=== PATIENT | male | born 1945 | race Caucasian/White ===

== ENCOUNTER 2018-01-26 09:38 | Day surgery (SDC) | payer MEDICARE, OTHER ==
[~2018-01-26 09:38] MED LIST: PROPOFOL INJ 200 MG/20 ML VIAL IV ONE
[2018-01-26 11:31] VITALS: BP 118/66
--- NOTE | 2018-01-26 12:35 | Operative Report ---
Operative Report DATE OF SURGERY: 01/26/18 Operative Report: The risks, benefits and alternatives of the procedure and the risk of bleeding, perforation requiring surgery are explained to the patient in detail and informed consent is obtained. The patient is placed in the left, lateral decubital position. Timeout was called. Propofol medication is administered. A rectal examination is done which did not reveal any masses, tears or fissures. An Olympus videoscope was introduced into the patient's rectum. The scope was then carefully advanced all the way to the cecum. The cecum was identified by the usual anatomical landmarks of the ileocecal valve as well as the appendiceal office. Photodocumentation is obtained. The scope was then sequentially pulled back via the various segments of the colon including the ascending colon, hepatic flexure, transverse colon, splenic flexure, descending colon and finally into the rectosigmoid portions of the colon. Retroflexion maneuver is performed. The risks benefits and alternatives of the procedure explained to the patient in detail and informed consent is obtained.A GIF Olympus video scope was inserted into the patient's mouth and hypopharynx, the esophagus is identified intubated and insufflated, the scope was then advanced through the esophagus stomach and duodenum, retroflexion maneuver is done the esophagus stomach and first and second portions of the duodenum examined PREOPERATIVE DIAGNOSIS: Colorectal cancer screening. Dysphagia POSTOPERATIVE DIAGNOSIS: 3 polyps noted is removed via snare polypectomy and retrieved. This is located in the hepatic flexure area. Diverticulosis. Internal hemorrhoids. Gastritis status post biopsy. Schatzki's ring that is broken in situ OPERATION: Colonoscopy with snare polypectomy. EGD with biopsy SURGEON: ABBI STAHL ANESTHESIA: LMAC TISSUE REMOVED OR ALTERED: As noted above. COMPLICATIONS: None. ESTIMATED BLOOD LOSS: None. INTRAOPERATIVE FINDINGS: As noted above. PROCEDURE: Patient tolerated the procedure well. No immediate postprocedure complications are noted. Patient discharged in good condition. Discharge date 01/26/2018. Discharge diet: Regular. Discharge activity: Regular. 2-3-week follow-up to discuss findings. 3-year surveillance colonoscopy. I will wait on the pathology. Patient is instructed to call the office or proceed to the emergency room should there be any further problems or questions.
--- NOTE | 2018-01-26 13:24 | EKG REPORT ---
SEVERITY:- ABNORMAL ECG - SINUS RHYTHM INCOMPLETE RIGHT BUNDLE BRANCH BLOCK INFERIOR INFARCT, OLD : Confirmed by: Jose Maria Patel MD 26-Jan-2018 13:23:19
== END 2018-01-26 11:00 | disposition home or self-care (01) ==
LOC: END 09:38
PROVIDERS: ATTEND Internal Medicine Gastroenterology
DX: Z12.11 Encounter for screening for malignant neoplasm of colon (principal); D12.4 Benign neoplasm of descending colon; K57.30 Diverticulosis of large intestine without perforation or abscess without bleeding; K64.8 Other hemorrhoids; Z86.010 Personal history of colon polyps; K22.2 Esophageal obstruction; K29.50 Unspecified chronic gastritis without bleeding; I10 Essential (primary) hypertension; M19.90 Unspecified osteoarthritis, unspecified site; R73.03 Prediabetes; R01.1 Cardiac murmur, unspecified; E78.5 Hyperlipidemia, unspecified; I25.10 Atherosclerotic heart disease of native coronary artery without angina pectoris; J45.20 Mild intermittent asthma, uncomplicated; Z86.73 Personal history of transient ischemic attack (TIA), and cerebral infarction without residual deficits
CPT/HCPCS: 43239; 45385; 88305 ×2; 93005; 93010; J2704; 813

== ENCOUNTER 2018-12-29 11:54 | Emergency (ER) | payer MEDICARE ==
--- NOTE | 2018-12-29 12:15 | EKG REPORT ---
SEVERITY:- ABNORMAL ECG - SINUS BRADYCARDIA FIRST DEGREE AV BLOCK IVCD, CONSIDER ATYPICAL RBBB BORDERLINE INFERIOR Q WAVES BORDERLINE ST DEPRESSION, LATERAL LEADS : Confirmed by: Jose Maria Patel MD 29-Dec-2018 12:14:30
[2018-12-29] MEDS ORDERED: NITROGLYCERIN 2% OINTMENT 1 GM PACKET TP ONE (12:20)
--- NOTE | 2018-12-29 12:27 | ER Document Report ---
ED Cardiac - General Chief Complaint: Syncope Stated Complaint: POSSIBLE SYNCOPE Information source: Patient Notes: Patient claims that earlier today started getting chest pain and almost passed out. She apparently was seen in his doctor's office given nitro glycerin and aspirin he apparently almost passed out afterwards when his heart had bradycardia down into the 40s. Names that he does not very minimal chest pain at this time and feels almost back to normal TRAVEL OUTSIDE OF THE [place] IN LAST 30 DAYS: No - HPI Patient complains to provider of: Chest pain. denies: Chest tightness, Palpitations, Shortness of breath, Other Use of: denies: Alcohol, Amphetamines, Bath salts, Caffeine, Cocaine, Decongestants, Other Was the onset of pain: Sudden Chest pain location: Substernal Quality of pain: denies: None, Constant, Intermittent, Mild, Moderate, Severe, Achy, Burning, Constriction, Cramping, Crushing, Dull, Heaviness, Incisional, Indigestion, Numbness, Pressure, Radiating, Sharp, Stabbing, Tearing, Throbbing, Tightness, Tingling, Other Chest pain radiation location: denies: Left jaw, Left arm, Left shoulder, Right jaw, Right arm, Right shoulder, Back, Neck, None Severity now: Mild Severity at worst: Moderate Pain level currently: 1 Chest pain precipitating factors: At Rest Cardiac risk factors: Hypertension, + Family history, Dyslipidemia Positive cardiac history: Yes Associated symptoms: Syncope. denies: None, Abdominal pain, Anxiety, Back pain, Cool extremities, Diaphoresis, Dizziness, Edema, Fatigue, Fever/chills, Headache, Heartburn, Hypotension, Jaw pain, Lightheaded, Nausea/vomiting, Neck pain, Palpitations, Rash, Shortness of breath, Swelling/lump in chest, Weakness, Other Exacerbated by: Denies Relieved by: Nothing Similar symptoms previously: Yes Recently seen / treated by doctor: Yes - Related Data Allergies/Adverse Reactions: No Known Allergies Allergy (Verified 12/29/18 12:12) Past Medical History - Social History Smoking Status: Former Smoker Chew tobacco use (# tins/day): No Frequency of alcohol use: Moderate Drug Abuse: None Patient has suicidal ideation: No Patient has homicidal ideation: No - Past Medical History Cardiac Medical History: Reports: Hx Coronary Artery Disease, Hx Hypertension Denies: Hx Heart Attack Pulmonary Medical History: Reports: Hx Asthma - MILD INTERMITTENT Denies: Hx Bronchitis, Hx COPD, Hx Pneumonia Neurological Medical History: Denies: Hx Cerebrovascular Accident, Hx Seizures Musculoskeletal Medical History: Reports Hx Arthritis - HANDS - Immunizations Hx Diphtheria, Pertussis, Tetanus Vaccination: No Review of Systems - Review of Systems Constitutional: denies: No symptoms reported, See HPI, Chills, Diaphoresis, Fever, Malaise, Weakness, Other, Weight gain, Weight loss, Recent illness EENT: denies: No symptoms reported, See HPI, Eye pain, Eye discharge, Blurred vision, Tearing, Double vision, Ear pain, Ear discharge, Nose pain, Nose congestion, Nose discharge, Sinus pressure, Sinus discharge, Throat pain, Difficulty swallowing, Throat swelling, Mouth pain, Mouth swelling, Dental problem, Vertigo, Other Cardiovascular: Chest pain. denies: No symptoms reported, See HPI, Palpitations, Heart racing, Orthopnea, Dyspnea, Syncope, Dizziness, Lightheaded, Edema, Other, Paroxysmal Nocturnal Dysp Respiratory: Short of breath. denies: No symptoms reported, See HPI, Cough, Hurts to breathe, Hemoptysis, Sputum, Stridor, Wheezing, Other Gastrointestinal: denies: No symptoms reported, See HPI, Abdomen distended, Abdominal pain, Diarrhea, Nausea, Vomiting, Constipation, Blood streaked bowels, Poor appetite, Poor fluid intake, Blood in vomit, Black stools, Rectal bleeding, Last bowel movement, Fecal incontinence, Other Neurological/Psychological: denies: No symptoms reported, See HPI, Confusion, Dementia, Depression, Hallucinations, Anxiety, Homicidal ideation, Sensory change, Weakness, Gait changes, Loss of power, Paralysis, Seizure, Lost consciousness, Headaches, Speech impairment, Numbness, Suicidal ideation, Tingling, Tremor, Other -: Yes All other systems reviewed and negative Physical Exam - Vital signs Notes: PHYSICAL EXAMINATION: GENERAL: Well-appearing, well-nourished and in no acute distress. HEAD: Atraumatic, normocephalic. EYES: Pupils equal round and reactive to light, extraocular movements intact, sclera anicteric, conjunctiva are normal. ENT: nares patent, oropharynx clear without exudates. Moist mucous membranes. NECK: Normal range of motion, supple without lymphadenopathy LUNGS: Breath sounds clear to auscultation bilaterally and equal. No wheezes rales or rhonchi. HEART: Regular rate and rhythm without murmurs ABDOMEN: Soft, nontender, normoactive bowel sounds. No guarding, no rebound. No masses appreciated. EXTREMITIES: Normal range of motion, no pitting or edema. No cyanosis. NEUROLOGICAL: No focal neurological deficits. Moves all extremities spontaneously and on command. PSYCH: Normal mood, normal affect. SKIN: Warm, Dry, normal turgor, no rashes or lesions noted. Course - EKG Interpretation by Me EKG shows normal: Sinus rhythm Rate: Normal Rhythm: NSR Heart block present: 1st Degree Additional EKG results interpreted by me: 12/29/18 12:26 There are flipped T's in leads I and aVL ST elevation no ectopy is noted no previous to compare at this time. We are attempting to get an old one from his doctor's office.
[2018-12-29 12:39] LABS: ABSOLUTE EOSINOPHILS # (AUTO) 0.3 10^3/uL (0.0-0.6); ABSOLUTE LYMPHOCYTES (AUTO) 1.6 10^3/uL (0.5-4.7); ABSOLUTE MONOCYTES (AUTO) 0.7 10^3/uL (0.1-1.4); ABSOLUTE NEUT (AUTO) 4.9 10^3/uL (1.7-8.2); BASOPHILS % (AUTO) 0.3 % (0-2); EOSINOPHILS % (AUTO) 4.3 % (0-6); HEMATOCRIT 42.2 % (37.9-51.0); HEMOGLOBIN 14.3 g/dL (13.5-17.0); LYMPHOCYTES % (AUTO) 21.1 % (13-45); MEAN CORPUSCULAR HEMOGLOBIN 31.4 pg (27.0-33.4); MEAN CORPUSCULAR HGB CONC 33.8 g/dL (32.0-36.0); MEAN CORPUSCULAR VOLUME 93 fl (80-97); MONOCYTES % (AUTO) 9.3 % (3-13); PLATELET COUNT 178 10^3/uL (150-450); RED BLOOD COUNT 4.55 10^6/uL (4.35-5.55); RED CELL DISTRIBUTION WIDTH 13.5 % (11.5-14.0); TOTAL CELLS COUNTED % (AUTO) 100 %; WHITE BLOOD COUNT 7.5 10^3/uL (4.0-10.5)
[2018-12-29 12:54] LABS: INTERNATIONAL RATION (INR) 1.03; PROTHROMBIN TIME 13.5 SEC (11.4-15.4)
--- NOTE | 2018-12-29 12:57 | RADIOLOGY REPORT (SQ) ---
EXAM DESCRIPTION: CHEST SINGLE VIEW COMPLETED DATE/TIME: 12/29/2018 12:44 pm REASON FOR STUDY: chest pain COMPARISON: None. EXAM PARAMETERS: NUMBER OF VIEWS: One view. TECHNIQUE: Single frontal radiographic view of the chest acquired. RADIATION DOSE: NA LIMITATIONS: None. FINDINGS: LUNGS AND PLEURA: No opacities, masses or pneumothorax. No pleural effusion. MEDIASTINUM AND HILAR STRUCTURES: No masses. Contour normal. HEART AND VASCULAR STRUCTURES: Enlarged cardiac silhouette. Aortic atherosclerosis. No evidence of failure. BONES: No acute findings. HARDWARE: Sternotomy hardware. OTHER: No other significant finding. IMPRESSION: No evidence of acute intrathoracic process. TECHNICAL DOCUMENTATION: JOB ID: [id number] [employer]- All Rights Reserved Reading location - IP/workstation name: [email or web address]
[2018-12-29 13:00] LABS: ALKALINE PHOSPHATASE 88 U/L (38-126); ANION GAP 7 (5-19); ASPARTATE AMINO TRANSFERASE 20 U/L (17-59); BILIRUBIN,DIRECT 0.1 mg/dL (0.0-0.4); BLOOD UREA NITROGEN 18 mg/dL (7-20); CALCIUM 9.3 mg/dL (8.4-10.2); CARBON DIOXIDE 27 mmol/L (22-30); CHLORIDE 105 mmol/L (98-107); GLUCOSE 129 mg/dL (75-110); POTASSIUM 4.2 mmol/L (3.6-5.0); TOTAL PROTEIN 6.9 g/dL (6.3-8.2)
--- NOTE | 2018-12-29 13:58 | ER Document Report ---
ED Syncope and Near Syncope <JONA OSBORNE P - Last Filed: 12/29/18 21:12> - General Information source: Patient, Relative TRAVEL OUTSIDE OF THE [place] IN LAST 30 DAYS: No - HPI Patient complains to provider of: Fainting. No: Nearly fainting, Other Episode witnessed (by whom): Yes - Single episoded occurred: yes Symptoms prior to episode: Chest pain, Dizziness. No: None, Abdominal pain, Back pain, Chills, Diarrhea, Fever, Headache, Hyperventilation, Lightheaded, Nausea/vomiting, Palpitations, Racing heart, Short of breath, Sweaty, Visual disturbance, Other Position/Activity at time of episode: Standing Quality of pain: denies: No pain, Achy, Burning, Cramping, Dull, Fullness, Pressure, Sharp, Stabbing, Throbbing, Other Severity: Mild Pain Level: 1 Context: Became unresponsive. denies: Almost passed out, Breathing shallow/stopped, Collapsed, Confused after event, [place] faint, Incontinent of stool, Incontinent of urine, Lost consciousness, Lost pulse, Low blood sugar, , Recent immobilization, Recent seizures, Recent travel, Seizure activity observed, Other Injury location: No: None, Abdomen, Back, Chest, Face, Head, Mouth, Neck, Tongue, LUE, LLE, RUE, RLE Current symptoms: None/feels back to normal Recently seen / treated by doctor: Yes <PATRIA VELASCO J - Last Filed: 12/30/18 06:16> - General Chief Complaint: Syncope Stated Complaint: POSSIBLE SYNCOPE Primary Care Provider: MEGAN TAM MD [Primary Care Provider] - Follow up as needed JESUS DUNBAR MD [ACTIVE STAFF] - Follow up as needed - Related Data Allergies/Adverse Reactions: No Known Allergies Allergy (Verified 12/29/18 12:12) Past Medical History - Social History Smoking Status: Former Smoker Chew tobacco use (# tins/day): No Frequency of alcohol use: Moderate Drug Abuse: None Family History: None Patient has suicidal ideation: No Patient has homicidal ideation: No - Past Medical History Cardiac Medical History: Reports: Hx Coronary Artery Disease, Hx Hypertension Denies: Hx Heart Attack Pulmonary Medical History: Reports: Hx Asthma - MILD INTERMITTENT Denies: Hx Bronchitis, Hx COPD, Hx Pneumonia Neurological Medical History: Denies: Hx Cerebrovascular Accident, Hx Seizures Musculoskeletal Medical History: Reports Hx Arthritis - HANDS Past Surgical History: Reports: Hx Cardiac Catheterization - Immunizations Hx Diphtheria, Pertussis, Tetanus Vaccination: No <PATRIA VELASCO - Last Filed: 12/30/18 06:16> Review of Systems - Review of Systems Constitutional: denies: No symptoms reported, See HPI, Chills, Diaphoresis, Fever, Malaise, Weakness, Other, Weight gain, Weight loss, Recent illness EENT: denies: No symptoms reported, See HPI, Eye pain, Eye discharge, Blurred vision, Tearing, Double vision, Ear pain, Ear discharge, Nose pain, Nose congestion, Nose discharge, Sinus pressure, Sinus discharge, Throat pain, Difficulty swallowing, Throat swelling, Mouth pain, Mouth swelling, Dental problem, Vertigo, Other Cardiovascular: Chest pain, Syncope. denies: No symptoms reported, See HPI, Palpitations, Heart racing, Orthopnea, Dyspnea, Dizziness, Lightheaded, Edema, Other, Paroxysmal Nocturnal Dysp Respiratory: denies: No symptoms reported, See HPI, Cough, Hurts to breathe, Hemoptysis, Short of breath, Sputum, Stridor, Wheezing, Other Gastrointestinal: denies: No symptoms reported, See HPI, Abdomen distended, Abdominal pain, Diarrhea, Nausea, Vomiting, Constipation, Blood streaked bowels, Poor appetite, Poor fluid intake, Blood in vomit, Black stools, Rectal bleeding, Last bowel movement, Fecal incontinence, Other Genitourinary: denies: No symptoms reported, See HPI, Burning, Dysuria, Discharge, Frequency, Flank pain, Hematuria, Incontinence, Pain, Urgency, Ret ention, Other Neurological/Psychological: denies: No symptoms reported, See HPI, Confusion, Dementia, Depression, Hallucinations, Anxiety, Homicidal ideation, Sensory change, Weakness, Gait changes, Loss of power, Paralysis, Seizure, Lost consciousness, Headaches, Speech impairment, Numbness, Suicidal ideation, Tingling, Tremor, Other -: Yes All other systems reviewed and negative <PATRIA VELASCO - Last Filed: 12/30/18 06:16> Physical Exam <PATRIA VELASCO - Last Filed: 12/30/18 06:16> - Vital signs Vitals: Resp 14 12/29/18 12:00 Notes: PHYSICAL EXAMINATION: GENERAL: Well-appearing, well-nourished and in no acute distress. HEAD: Atraumatic, normocephalic. EYES: Pupils equal round and reactive to light, extraocular movements intact, sclera anicteric, conjunctiva are normal. ENT: nares patent, oropharynx clear without exudates. Moist mucous membranes. NECK: Normal range of motion, supple without lymphadenopathy LUNGS: Breath sounds clear to auscultation bilaterally and equal. No wheezes rales or rhonchi. HEART: Regular rate and rhythm without murmurs ABDOMEN: Soft, nontender, normoactive bowel sounds. No guarding, no rebound. No masses appreciated. EXTREMITIES: Normal range of motion, no pitting or edema. No cyanosis. NEUROLOGICAL: No focal neurological deficits. Moves all extremities spontaneously and on command. PSYCH: Normal mood, normal affect. SKIN: Warm, Dry, normal turgor, no rashes or lesions noted. (PATRIA VELASCO) Course - Laboratory Result Diagrams: 12/29/18 12:17 12/29/18 12:17 <JONA OSBORNE - Last Filed: 12/29/18 21:12> - Laboratory Result Diagrams: 12/29/18 12:17 12/29/18 12:17 - Diagnostic Test Radiology reviewed: Image reviewed, Reports reviewed - EKG Interpretation by Me EKG shows normal: Sinus rhythm Rate: Normal Rhythm: NSR Heart block present: 1st Degree When compared to previous EKG there are: No significant change - Transfer of Care Care transferred to following provider: nawaf at 4 pm to check troponin and patients progress <PATRIA VELASCO - Last Filed: 12/30/18 06:16> - Re-evaluation Re-evalutation: 12/29/18 16:48 MDM 73 year old with chest pain today at physical in doctor's office, passed out afterwards. He feels fine here and 2 troponins are negative and he is without change for EKG from [place] - Ant and inf t wave inversions were present in 17. He wants to go home. Will rec cardiology follow up. I received this patient in turnover from Dr. Velasco at the end of his shift and he initiated the work up. (JONA OSBORNE) - Vital Signs Vital signs: Temp Pulse Resp BP Pulse Ox 16 109/48 L 95 12/29/18 17:17 12/29/18 17:17 12/29/18 17:17 - Laboratory Laboratory results interpreted by me: 12/29/18 12:17 Glucose 129 H - EKG Interpretation by Me Additional EKG results interpreted by me: 12/29/18 13:57 Please note EKG was obtained from his previous doctor in [place] from 10/21/2017 which shows flipped T's in leads I and aVL with approximately 1 mm de pression similar to the day the EKG is unchanged from that time (PATRIA VELASCO) - Transfer of Care Notes: 12/29/18 15:18 Note a repeat troponin will be done at 315 it is negative and patient has no chest pain with exertion or dizziness we will let him go home. All of his regular doctor for possible Holter monitor/stress test/echocardiogram he should return if he passes out again chest pain shortness of breath or condition worsens (PATRIA VELASCO) Discharge <JONA OSBORNE - Last Filed: 12/29/18 21:12> <PATRIA VELASCO - Last Filed: 12/30/18 06:16> - Discharge Clinical Impression: Vasovagal syncope Condition: Stable Disposition: HOME, SELF-CARE Instructions: Syncopal Episode ([facility]), Vasovagal Symptoms ([facility]) Additional Instructions: Increased fluid in your diet such as Gatorade mixed with water if you have black or bloody stools and diarrhea you pass out again chest pain shortness of breath or increased dizziness. Call Dr. Nicole (cardiology) in follow up. Referrals: MEGAN TAM MD [Primary Care Provider] - Follow up as needed JESUS DUNBAR MD [ACTIVE STAFF] - Follow up as needed
[2018-12-29 17:25] VITALS: BP 109/48
== END 2018-12-29 17:25 | disposition home or self-care (01) ==
LOC: ER 11:54
DX: R55 Syncope and collapse (principal); R07.9 Chest pain, unspecified; R42 Dizziness and giddiness; I44.0 Atrioventricular block, first degree; I25.10 Atherosclerotic heart disease of native coronary artery without angina pectoris; I10 Essential (primary) hypertension; J45.20 Mild intermittent asthma, uncomplicated; Z87.891 Personal history of nicotine dependence
CPT/HCPCS: 93005; 36415; 83690; 85025; 85610; 80053; 84484; 71045; 93010; A9270; 99284

== ENCOUNTER 2019-01-15 09:54 | Emergency (ER) | payer MEDICARE ==
[2019-01-15] MEDS ORDERED: ASPIRIN 81 MG TABLET, CHEWABLE PO ONE (10:36)
--- NOTE | 2019-01-15 10:36 | ER Document Report ---
ED Medical Screen (RME) - General Chief Complaint: Palpitations Stated Complaint: HEART PALPITATIONS Time Seen by Provider: 01/15/19 10:30 Primary Care Provider: MEGAN TAM MD [Primary Care Provider] - Follow up as needed Mode of Arrival: Wheelchair Information source: Patient Notes: 73-year-old male presented to ED after an episode of near syncope while driving about 930. He states his vision on the left side got very blurry with some spots then he got very weak so he pulled over let his drive when she got to the emergency room he was very weak and was not able to walk by himself he has tingling in his bilateral fingers and toes. He states he does have a stress test scheduled for Friday,20 January. 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 Patient is alert oriented respirations regular nonlabored answering questions appropriately. I have greeted and performed a rapid initial assessment of this patient. A comprehensive ED assessment and evaluation of the patient, analysis of test results and completion of medical decision making process will be conducted by an additional ED providers. TRAVEL OUTSIDE OF THE [place] IN LAST 30 DAYS: No - Related Data Allergies/Adverse Reactions: No Known Allergies Allergy (Verified 12/29/18 12:12) Past Medical History - Past Medical History Cardiac Medical History: Reports: Hx Coronary Artery Disease, Hx Hypertension Denies: Hx Heart Attack Pulmonary Medical History: Reports: Hx Asthma - MILD INTERMITTENT Denies: Hx Bronchitis, Hx COPD, Hx Pneumonia Neurological Medical History: Denies: Hx Cerebrovascular Accident, Hx Seizures Musculoskeltal Medical History: Reports Hx Arthritis - HANDS Past Surgical History: Reports: Hx Cardiac Catheterization - Immunizations Hx Diphtheria, Pertussis, Tetanus Vaccination: No Physical Exam - Vital signs Vitals: Temp Pulse Resp BP Pulse Ox 97.4 F 69 22 H 157/74 H 99 01/15/19 10:15 01/15/19 10:15 01/15/19 10:15 01/15/19 10:15 01/15/19 10:15 Course - Vital Signs Vital signs: Temp Pulse Resp BP Pulse Ox 97.4 F 69 22 H 157/74 H 99 01/15/19 10:15 01/15/19 10:15 01/15/19 10:15 01/15/19 10:15 01/15/19 10:15 Doctor's Discharge - Discharge Referrals: MEGAN TAM MD [Primary Care Provider] - Follow up as needed
[2019-01-15 11:05] LABS: ABSOLUTE EOSINOPHILS # (AUTO) 0.3 10^3/uL (0.0-0.6); ABSOLUTE LYMPHOCYTES (AUTO) 1.8 10^3/uL (0.5-4.7); ABSOLUTE MONOCYTES (AUTO) 0.6 10^3/uL (0.1-1.4); BASOPHILS % (AUTO) 0.4 % (0-2); EOSINOPHILS % (AUTO) 5.6 % (0-6); HEMATOCRIT 44.6 % (37.9-51.0); HEMOGLOBIN 15.2 g/dL (13.5-17.0); LYMPHOCYTES % (AUTO) 31.8 % (13-45); MEAN CORPUSCULAR HEMOGLOBIN 31.5 pg (27.0-33.4); MEAN CORPUSCULAR VOLUME 93 fl (80-97); MONOCYTES % (AUTO) 9.7 % (3-13); PLATELET COUNT 223 10^3/uL (150-450); RED BLOOD COUNT 4.81 10^6/uL (4.35-5.55); RED CELL DISTRIBUTION WIDTH 13.5 % (11.5-14.0); SEGMENTED NEUTROPHILS % (AUTO) 52.5 % (42-78); TOTAL CELLS COUNTED % (AUTO) 100 %; WHITE BLOOD COUNT 5.7 10^3/uL (4.0-10.5)
--- NOTE | 2019-01-15 11:16 | RADIOLOGY REPORT (SQ) ---
EXAM DESCRIPTION: CHEST 2 VIEWS COMPLETED DATE/TIME: 01/15/2019 11:01 am REASON FOR STUDY: chest pain COMPARISON: 12/29/2018 EXAM PARAMETERS: NUMBER OF VIEWS: two views TECHNIQUE: Digital Frontal and Lateral radiographic views of the chest acquired. RADIATION DOSE: NA LIMITATIONS: none FINDINGS: LUNGS AND PLEURA: No opacities, masses or pneumothorax. No pleural effusion. Emphysematou s change with flattening of the hemidiaphragm and increased AP diameter. MEDIASTINUM AND HILAR STRUCTURES: No masses or contour abnormalities. HEART AND VASCULAR STRUCTURES: Normal heart size. Aortic atherosclerosis per BONES: Sternotomy changes. No acute findings. HARDWARE: Sternotomy hardware. OTHER: No other significant finding. IMPRESSION: Emphysematous change without evidence of acute cardiopulmonary process. TECHNICAL DOCUMENTATION: JOB ID: [id number] [employer]- All Rights Reserved Reading location - IP/workstation name: [email or web address]
[2019-01-15 11:37] LABS: ALBUMIN 4.5 g/dL (3.5-5.0); ALKALINE PHOSPHATASE 90 U/L (38-126); ANION GAP 11 (5-19); ASPARTATE AMINO TRANSFERASE 24 U/L (17-59); BILIRUBIN,DIRECT 0.1 mg/dL (0.0-0.4); BILIRUBIN,TOTAL 1.1 mg/dL (0.2-1.3); BLOOD UREA NITROGEN 20 mg/dL (7-20); CALCIUM 9.9 mg/dL (8.4-10.2); CARBON DIOXIDE 28 mmol/L (22-30); CHLORIDE 102 mmol/L (98-107); GLUCOSE 139 mg/dL (75-110); POTASSIUM 4.2 mmol/L (3.6-5.0); TOTAL PROTEIN 7.6 g/dL (6.3-8.2)
--- NOTE | 2019-01-15 13:07 | EKG REPORT ---
SEVERITY:- ABNORMAL ECG - SINUS RHYTHM NONSPECIFIC INTRAVENTRICULAR CONDUCTION DELAY PROBABLE INFERIOR INFARCT, OLD PROBABLE POSTERIOR INFARCT : Confirmed by: Marcela Cardenas MD 15-Jan-2019 13:07:07
[2019-01-15] MEDS ORDERED: LORAZEPAM 0.5 MG TABLET PO ONE (16:46)
--- NOTE | 2019-01-15 16:51 | ER Document Report ---
ED General - General Chief Complaint: Near Syncope Stated Complaint: HEART PALPITATIONS Time Seen by Provider: 01/15/19 10:30 Primary Care Provider: MEGAN TAM MD [Primary Care Provider] - Follow up as needed Mode of Arrival: Wheelchair TRAVEL OUTSIDE OF THE [place] IN LAST 30 DAYS: No - HPI Notes: Patient is a 73-year-old male with a history of coronary artery disease status post bypass, hypertension, cataract surgery left eye who presents complaining of having some spotty vision when he was driving to his left eye around 930 this morning. Patient states that he started feeling generally weak with a mild left temporal headache thereafter. He did switch places with his at that time. states that she did not notice any slurring of speech or drooping of his face. Patient states that this lasted for a few minutes and then went away. Patient states that he has not had any recurrence of any of his symptoms since that time. He has been able to eat and drink without difficulty. He is urinating normally and having normal bowel movements. Denies drug allergies. He has not had any palpitations today, but does have h/o palpitations that is being monitored by his windows migration technician. Denies any fever, head injury, neck pain, changes in speech/mentation/hearing, URI, sore throat, chest pain, palpitations, syncope, cough, shortness of breath, wheeze, dyspnea, abdominal pain, nausea/vomiting/diarrhea, urinary retention, dysuria, hematuria, loss of control of bowel or bladder, numbness/tingling, saddle anesthesia, muscle paralysis, or rash. - Related Data Allergies/Adverse Reactions: No Known Allergies Allergy (Verified 12/29/18 12:12) Past Medical History - General Information source: Patient - Social History Smoking Status: Never Smoker Family History: None Patient has suicidal ideation: No Patient has homicidal ideation: No - Past Medical History Cardiac Medical History: Reports: Hx Coronary Artery Disease, Hx Hypertension Denies: Hx Heart Attack Pulmonary Medical History: Reports: Hx Asthma - MILD INTERMITTENT Denies: Hx Bronchitis, Hx COPD, Hx Pneumonia Neurological Medical History: Denies: Hx Cerebrovascular Accident, Hx Seizures Musculoskeletal Medical History: Reports Hx Arthritis - HANDS Past Surgical History: Reports: Hx Cardiac Catheterization - Immunizations Hx Diphtheria, Pertussis, Tetanus Vaccination: No Review of Systems - Review of Systems -: Yes All other systems reviewed and negative Physical Exam - Vital signs Vitals: Temp Pulse Resp BP Pulse Ox 97.4 F 69 22 H 157/74 H 99 01/15/19 10:15 01/15/19 10:15 01/15/19 10:15 01/15/19 10:15 01/15/19 10:15 - Notes Notes: PHYSICAL EXAMINATION: GENERAL: Well-appearing, well-nourished and in no acute distress. A&Ox4. Answers questions appropriately. HEAD: Atraumatic, normocephalic. Non-tender. EYES: Pupils equal round and reactive to light, extraocular movements intact, sclera anicteric, conjunctiva are normal. No nystagmus. ENT: EAC clear b/l. TM's intact b/l without erythema, fluid, or perforation. Nares patent and without discharge. oropharynx clear without exudates. No tonsilar hypertrophy or erythema. Moist mucous membranes. No sinus tenderness. NECK: Normal range of motion, supple without lymphadenopathy. No r igidity/meningismus. No midline tenderness. LUNGS: Breath sounds clear to auscultation bilaterally and equal. No wheezes rales or rhonchi. HEART: Regular rate and rhythm without murmurs, rubs, gallops. ABDOMEN: Soft, nontender, nondistended abdomen. No guarding, no rebound. Normal bowel sounds present. No CVA tenderness bilaterally. Musculoskeletal: Ext b/l: FROM to passive/active. Strength 5+/5. No deficits noted. No bony tenderness of extremities. Extremities: No cyanosis, clubbing, or edema b/l. Peripheral pulses 2+. Capillary refill less than 2 seconds. NEUROLOGICAL: NIH 0. GCS 15. Cranial nerves grossly intact. Normal speech, normal gait. Normal sensory, motor exams. Reflexes 2+ b/l. ELIS's negative. Pronator drift negative. Heel/cano, finger/nose wnl. PSYCH: Normal mood, normal affect. SKIN: Warm, Dry, normal turgor, no rashes or lesions noted. Course - Re-evaluation Re-evalutation: 01/15/19 18:17 I did review with Dr. Snell who is in agreement with dispo/plan after review of case: Patient is an afebrile, well-hydrated, 73-year-old male who presents with nonspecific blurriness of vision, mild left temporal headache, general weakness that is since resolved. Vitals are acceptable without significant tachycardia, tachypnea, hypoxia. PE is otherwise unremarkable for any focal neurological deficits. NIH 0, GCS 15, Cranial nerves grossly intact. Pt never had any focal deficits or unilateral weakness reported/noted. Patient is nontoxic-appearing and is tolerating p.o. without difficulty. Labs and imaging including CT of the head was unremarkable. Patient's symptoms resolved a couple minutes after initial onset and have not returned. No further work-up warranted at this time. Low suspicion for any acute glaucoma, temporal arteritis, meningitis, intracranial hemorrhage, ischemic stroke, or fracture at this time. Patient is aware that his condition can change from initial presentation and that he needs to monitor symptoms closely for any acute changes. Reviewed that even though we have lower suspicion, we cannot adequately r/o possible TIA/Temporal arteritis etc. Strict return precautions were reviewed thoroughly. Dr. Snell does not believe his presentation/history to mimic TIA very well and we discussed monitoring very closely and return precautions. Patient is to recheck with his PCM on Friday. Schedule appointment with ophthalmology as well. Return to the ED with any other worsening/concerning symptoms. Patient is in agreement. - Vital Signs Vital signs: Temp Pulse Resp BP Pulse Ox 97.4 F 73 22 H 157/74 H 99 01/15/19 10:31 01/15/19 10:31 01/15/19 10:31 01/15/19 10:31 01/15/19 10:31 - Laboratory Result Diagrams: 01/15/19 10:50 01/15/19 10:50 Laboratory results interpreted by me: 01/15/19 10:50 Glucose 139 H Discharge - Discharge Clinical Impression: Vision changes, Left temporal headache, General weakness Condition: Stable Disposition: HOME, SELF-CARE Additional Instructions: Rest, Ice/cool compress Tylenol/ibuprofen as needed Light stretches daily Take medications as directed F/u with your PCP in 2-3 days for a recheck Schedule an appointment with ophthalmology Consider consult(s) with Neurology for ongoing/worsening symptoms Return to the ED with any worsening symptoms and/or development of fever, headache, changes in behavior/mentation/vision/speech, chest pain, palpitations, syncope, shortness of breath, trouble breathing, abdominal pain, n/v/d, blood in stool/urine, loss of control of bowel/bladder, urinary retention, muscle weakness/paralysis, saddle anesthesia, numbness/tingling, or other worsening symptoms that are concerning to you. Prescriptions: Hydroxyzine Pamoate [Vistaril 25 mg Capsule] 25 mg PO BID #12 capsule Forms: Elevated Blood Pressure Referrals: MEGAN TAM MD [Primary Care Provider] - Follow up as needed MILES ORANTES MD [ACTIVE STAFF] - Follow up in 3-5 days
--- NOTE | 2019-01-15 18:03 | RADIOLOGY REPORT (SQ) ---
EXAM DESCRIPTION: CT HEAD WITHOUT COMPLETED DATE/TIME: 01/15/2019 5:47 pm REASON FOR STUDY: visual change left eye, headache COMPARISON: None. TECHNIQUE: Axial images acquired through the brain without intravenous contrast. Images reviewed wi th bone, brain and subdural windows. Additional sagittal and coronal reconstructions were generated. Images stored on PACS. All CT scanners at this facility use dose modulation, iterative reconstruction, and/or weight based d osing when appropriate to reduce radiation dose to as low as reasonably achievable (ALARA). [facility]: Dose Right [facility]: CareDose [facility]: Dose Right [facility]: Teradose 4D [facility]: Smart CINEPASS RADIATION DOSE: CT Rad equipment meets quality standard of care and radiation dose reduction techniq ues were employed. CTDIvol: 53.2 mGy. DLP: 964 mGy-cm. mGy. LIMITATIONS: None. FINDINGS: VENTRICLES: Normal size and contour. CEREBRUM: No masses. No hemorrhage. No midline shift. No evidence for acute infarction. Normal gra y/white matter differentiation. No areas of low density in the white matter. CEREBELLUM: No masses. No hemorrhage. No alteration of density. No evidence for acute infarction. EXTRAAXIAL SPACES: No fluid collections. No masses. ORBITS AND GLOBE: No intra- or extraconal masses. Normal contour of globe without masses. CALVARIUM: No fracture. PARANASAL SINUSES: Extensive mucoperiosteal thickening in the maxillary, ethmoid, and sphenoid sinuse s. Antral windows are present. SOFT TISSUES: No mass or hematoma. OTHER: No other significant finding. IMPRESSION: Extensive sinus disease. No acute intracranial imaging finding. EVIDENCE OF ACUTE STROKE: NO. COMMENT: Quality ID # [id number]: Final reports with documentation of one or more dose reduction techniques (e.g., Automated exposure control, adjustment of the mA and/or kV according to patient size, use of iterative reconstruction technique) TECHNICAL DOCUMENTATION: JOB ID: [id number]- All Rights Reserved Reading location - IP/workstation name: [email or web address]
[2019-01-15 18:44] VITALS: BP 132/70
== END 2019-01-15 18:40 | disposition home or self-care (01) ==
LOC: ER 09:54
DX: H53.9 Unspecified visual disturbance (principal); R55 Syncope and collapse; R51 Headache; R53.1 Weakness; Z95.1 Presence of aortocoronary bypass graft
CPT/HCPCS: 93005; 99284; 36415; 83735; 85025; 80053; 84484; 71046; 70450; 93010; A9270 ×2

== ENCOUNTER 2019-01-19 08:35 | Emergency (ER) | payer MEDICARE ==
[2019-01-19 08:44] LABS: ABSOLUTE EOSINOPHILS # (AUTO) 0.2 10^3/uL (0.0-0.6); ABSOLUTE MONOCYTES (AUTO) 0.7 10^3/uL (0.1-1.4); ABSOLUTE NEUT (AUTO) 3.9 10^3/uL (1.7-8.2); BASOPHILS % (AUTO) 0.4 % (0-2); EOSINOPHILS % (AUTO) 2.4 % (0-6); HEMATOCRIT 47.4 % (37.9-51.0); HEMOGLOBIN 16.3 g/dL (13.5-17.0); LYMPHOCYTES % (AUTO) 29.9 % (13-45); MEAN CORPUSCULAR HEMOGLOBIN 31.3 pg (27.0-33.4); MEAN CORPUSCULAR HGB CONC 34.3 g/dL (32.0-36.0); MEAN CORPUSCULAR VOLUME 91 fl (80-97); MONOCYTES % (AUTO) 9.9 % (3-13); PLATELET COUNT 224 10^3/uL (150-450); RED BLOOD COUNT 5.21 10^6/uL (4.35-5.55); RED CELL DISTRIBUTION WIDTH 13.2 % (11.5-14.0); SEGMENTED NEUTROPHILS % (AUTO) 57.4 % (42-78); TOTAL CELLS COUNTED % (AUTO) 100 %; WHITE BLOOD COUNT 6.7 10^3/uL (4.0-10.5)
[2019-01-19 09:04] LABS: BLOOD UREA NITROGEN 14 mg/dL (7-20); GLUCOSE 146 mg/dL (75-110)
[2019-01-19 09:05] LABS: ALBUMIN 4.7 g/dL (3.5-5.0); ALKALINE PHOSPHATASE 101 U/L (38-126); ANION GAP 12 (5-19); ASPARTATE AMINO TRANSFERASE 27 U/L (17-59); BILIRUBIN,DIRECT 0.1 mg/dL (0.0-0.4); BILIRUBIN,TOTAL 1.4 mg/dL (0.2-1.3); CARBON DIOXIDE 26 mmol/L (22-30); CHLORIDE 101 mmol/L (98-107); CREATINE KINASE 48 U/L (55-170); TOTAL PROTEIN 7.9 g/dL (6.3-8.2)
--- NOTE | 2019-01-19 09:08 | RADIOLOGY REPORT (SQ) ---
EXAM DESCRIPTION: CHEST SINGLE VIEW COMPLETED DATE/TIME: 01/19/2019 8:56 am REASON FOR STUDY: bed 12 cp COMPARISON: 01/15/2019 EXAM PARAMETERS: NUMBER OF VIEWS: One view. TECHNIQUE: Single frontal radiographic view of the chest acquired. RADIATION DOSE: NA LIMITATIONS: None. FINDINGS: LUNGS AND PLEURA: No opacities, masses or pneumothorax. No pleural effusion. MEDIASTINUM AND HILAR STRUCTURES: No masses. Contour normal. HEART AND VASCULAR STRUCTURES: Heart normal in size. Aortic atherosclerosis. BONES: No acute findings. HARDWARE: Sternotomy hardware. OTHER: No other significant finding. IMPRESSION: No evidence of acute cardiopulmonary process. TECHNICAL DOCUMENTATION: JOB ID: [id number] [employer]- All Rights Reserved Reading location - IP/workstation name: [email or web address]
[2019-01-19 09:25] LABS: CREATINE KINASE MB 1.12 ng/mL (<4.55)
[2019-01-19 09:32] LABS: TROPONIN I < 0.012 ng/mL
[2019-01-19] MEDS ORDERED: LORAZEPAM INJ 2 MG/1 ML VIAL IV ONE (09:33)
--- NOTE | 2019-01-19 09:49 | ER Document Report ---
ED Cardiac - General Chief Complaint: Chest Pressure Stated Complaint: CHEST PAIN, TINGLING & NUMBNESS HANDS AND FEET Time Seen by Provider: 01/19/19 09:05 Primary Care Provider: MEGAN TAM MD [Primary Care Provider] - Follow up as needed Mode of Arrival: Medic Information source: Patient TRAVEL OUTSIDE OF THE [place] IN LAST 30 DAYS: No - HPI Notes: Patient comes in complaining of chest pain and tightness. This is been going on since last night the patient has been having intermittent chest pain for over a month now. It does seem to get worse with anxiety or stress and better with rest. It is in the left side of his chest. No known radiation of the symptoms. It is moderate in intensity and intermittent. Patient states she is also been feeling anxious and having shaking. He has been having some numbness of the hands and legs as well. He is also been having a left-sided headache and some vision changes. Patient's risk factors include have any previous coronary artery bypass graft, aortic stenosis and TIAs. Patient also has known hypertension. Patient states he was scheduled to have a stress test done t omorrow by his vessel slagman but since he was having the chest pain today he came to the hospital. - Related Data Allergies/Adverse Reactions: No Known Allergies Allergy (Verified 12/29/18 12:12) Home Medications: Losartan. Hctz. Aspirin. Xanax. Breo Past Medical History - General Information source: Patient - Social History Smoking Status: Never Smoker Frequency of alcohol use: None Drug Abuse: None Family History: None Patient has suicidal ideation: No Patient has homicidal ideation: No - Past Medical History Cardiac Medical History: Reports: Hx Coronary Artery Disease, Hx Hypertension Denies: Hx Heart Attack Pulmonary Medical History: Reports: Hx Asthma - MILD INTERMITTENT Denies: Hx Bronchitis, Hx COPD, Hx Pneumonia Neurological Medical History: Denies: Hx Cerebrovascular Accident, Hx Seizures Musculoskeletal Medical History: Reports Hx Arthritis - HANDS Past Surgical History: Reports: Hx Cardiac Catheterization - Immunizations Hx Diphtheria, Pertussis, Tetanus Vaccination: No Review of Systems - Review of Systems Constitutional: denies: Chills, Fever Cardiovascular: Chest pain, Palpitations Respiratory: Short of breath. denies: Cough -: Yes All other systems reviewed and negative Physical Exam - Vital signs Vitals: Temp Pulse Resp BP Pulse Ox 97.7 F 84 18 148/75 H 100 01/19/19 08:46 01/19/19 08:46 01/19/19 08:46 01/19/19 08:46 01/19/19 08:46 Interpretation: Normal - General General appearance: Appears well, Alert - HEENT Head: Normocephalic, Atraumatic Eyes: Normal Pupils: PERRL - Respiratory Respiratory status: No respiratory distress Chest status: Nontender Breath sounds: Normal Chest palpation: Normal - Cardiovascular Rhythm: Regular Heart sounds: Normal auscultation Murmur: No - Abdominal Inspection: Normal Distension: No distension Bowel sounds: Normal Tenderness: Nontender Organomegaly: No organomegaly - Back Back: Normal, Nontender - Extremities General upper extremity: Normal inspection, Nontender, Normal color, Normal ROM, Normal temperature General lower extremity: Normal inspection, Nontender, Normal color, Normal ROM, Normal temperature, Normal weight bearing. No: Alejandra's sign - Neurological Neuro grossly intact: Yes Cognition: Normal Orientation: AAOx4 [place] Coma Scale Eye Opening: Spontaneous [place] Coma Scale Verbal: Oriented [place] Coma Scale Motor: Obeys Commands Sk[place] Coma Scale Total: 15 Speech: Normal Motor strength normal: LUE, RUE, LLE, RLE Sensory: Normal - Psychological Associated symptoms: Normal affect, Anxious - Skin Skin Temperature: Warm Skin Moisture: Dry Skin Color: Normal Course - Re-evaluation Re-evalutation: 01/19/19 09:48 Patient presents with chest pain. He is scheduled to have a stress test tomorrow. However with patient's age and risk factors it seems most prudent since he is having chest pain today to admit the patient for further serial troponins and stress testing. - Vital Signs Vital signs: Temp Pulse Resp BP Pulse Ox 97.7 F 84 18 148/75 H 100 01/19/19 08:46 01/19/19 08:46 01/19/19 08:46 01/19/19 08:46 01/19/19 08:46 - Laboratory Result Diagrams: 01/19/19 08:06 01/19/19 08:06 Laboratory results interpreted by me: 01/19/19 08:06 Glucose 146 H Total Bilirubin 1.4 H Creatine Kinase 48 L - Diagnostic Test Radiology reviewed: Image reviewed, Reports reviewed - EKG Interpretation by Me EKG shows normal: Sinus rhythm Rate: Normal - 62 Rhythm: NSR Mart/QRS: No: Right axis deviation, Left axis deviation Discharge - Discharge Clinical Impression: Chest pain Qualifiers: Chest pain type: unspecified Qualified Code(s): R07.9 - Chest pain, unspecified Condition: Stable Disposition: ADMITTED INPATIENT Admitting Provider: Neptali (Hospitalist) Unit Admitted: Telemetry Referrals: MEGAN TAM MD [Primary Care Provider] - Follow up as needed
--- NOTE | 2019-01-19 12:51 | EKG REPORT ---
SEVERITY:- ABNORMAL ECG - SINUS RHYTHM FIRST DEGREE AV BLOCK PROBABLE LEFT ATRIAL ABNORMALITY NONSPECIFIC INTRAVENTRICULAR CONDUCTION DELAY PROBABLE POSTERIOR INFARCT : Confirmed by: Jose Maria Patel MD 19-Jan-2019 12:51:07
--- NOTE | 2019-01-19 14:53 | PDOC CONSULTATION ---
Consultation Consult Date: 01/19/19 Attending physician:: JIN PINZON Provider Consulted: DURGA VENCES Consult reason:: Need for admission. Palpitations, weakness, chest tightness History of Present Illness Admission Date/PCP: MEGAN TAM MD Patient complains of: palpitations, chest tightness History of Present Illness: SHARIFA VAZQUEZ is a 73 year old male with a history of CAD s/P triple bypass 9 years ago who presents with complaints of palpitations associated with chest tightness and an overwhelming feeling of weakness. This started this morning when patient woke up. Currently his symptoms have resolved after receiving some benzodiazepine in the ER. Patient acknowledges having several episodes of intermittent persistent palpitations lasting few minutes to half hour. Oftentimes these episodes are associated with chest tightness and on one occasion was associated with blurred vision that lasted 1 minute. Patient has seen his doctor about this and has been scheduled by Dr. Davila to have a outpatient stress test tomorrow. Patient denies any worsening of chest pain with exertion and denies improvement with rest. Patient states that her episodes are not specifically precipitated by any particular event or surr oundings. Patient denies any specific muscle weakness but did state that this morning he felt like his whole body was weak. Patient does admit to getting anxious occasionally about certain things including checking his blood pressures. Past Medical History Cardiac Medical History: Reports: Coronary Artery Disease, Hypertension Denies: Myocardial Infarction Pulmonary Medical History: Reports: Asthma - MILD INTERMITTENT Denies: Bronchitis, Chronic Obstructive Pulmonary Disease (COPD), Pneumonia Neurological Medical History: Denies: Seizures Musculoskeltal Medical History: Reports: Arthritis - HANDS Hematology: Denies: Anemia Past Surgical History Past Surgical History: Reports: Cardiac Catheterization, Coronary Artery Bypass Graft - Triple bypass 9 years ago Social History Information Source: Patient Smoking Status: Former Smoker - Last month when he was in his youth Electronic Cigarette use?: No Frequency of Alcohol Use: Rare Hx Recreational Drug Use: No Family History Family History: Reviewed & Not Pertinent Parental Family History Reviewed: Yes Children Family History Reviewed: NA Sibling(s) Family History Reviewed.: Yes Medication/Allergy Home Medications: Albuterol Sulfate [Ventolin Hfa 8 gm Mdi (1 Mdi/ER Disp)] 2 puff IH ASDIR PRN 01/23/18 Alprazolam [Xanax] 0.5 mg PO QHS 01/23/18 Aspirin [Adult Aspirin] 81 mg PO DAILY 01/23/18 Fluticasone Propionate [Flonase Allergy Relief] 1 spray NS DAILY 01/23/18 Hydrochlorothiazide [Hydrodiuril 25 mg Tablet] 12.5 mg PO DAILY 01/23/18 Losartan Potassium 100 mg PO DAILY 01/23/18 Rosuvastatin Calcium 10 mg PO DAILY 01/23/18 Cholecalciferol (Vitamin D3) [Vitamin D] 1,000 unit PO QAM 01/26/18 Multivitamin [Multivitamins] 1 each PO DAILY 01/26/18 Fluticasone/Vilanterol [Breo 100-25 Mcg Ellipta 14 Dose/Dpi] 1 inh IH DAILY 12/29/18 Tadalafil [Cialis] 20 mg PO PRN PRN 12/29/18 Hydroxyzine Pamoate [Vistaril 25 mg Capsule] 25 mg PO BID #12 capsule 01/15/19 Allergies/Adverse Reactions: No Known Allergies Allergy (Verified 12/29/18 12:12) Review of Systems Constitutional: ABSENT: chills, fever(s) Eyes: PRESENT: visual disturbances Ears: ABSENT: hearing changes Nose, Mouth, and Throat: ABSENT: vertigo Cardiovascular: PRESENT: chest pain, palpitations. ABSENT: dyspnea on exertion Respiratory: ABSENT: cough, dyspnea Gastrointestinal: ABSENT: abdominal pain Integumentary: ABSENT: erythema Neurological: ABSENT: dizziness, vertigo Psychiatric: PRESENT: anxiety Endocrine: ABSENT: polydipsia Allergic/Immunologic: PRESENT: seasonal rhinorrhea Physical Exam Vital Signs: Temp Pulse Resp BP Pulse Ox 97.7 F 84 11 L 126/65 H 98 01/19/19 08:46 01/19/19 08:46 01/19/19 11:16 01/19/19 12:00 01/19/19 12:01 Intake & Output 01/18/19 01/19/19 01/20/19 06:59 06:59 06:59 Weight 87.543 kg General appearance: PRESENT: no acute distress, cooperative Neck exam: ABSENT: JVD Respiratory exam: PRESENT: clear to auscultation yandy, symmetrical, unlabored. ABSENT: tachypnea, wheezes Cardiovascular exam: PRESENT: RRR, +S1, +S2, systolic murmur. ABSENT: tachycardia GI/Abdominal exam: PRESENT: normal bowel sounds, soft. ABSENT: rebound, rigid, tenderness Neurological exam: PRESENT: alert, awake, oriented to person, oriented to place, oriented to time, oriented to situation, CN II-XII grossly intact. ABSENT: altered, ataxia, motor sensory deficit, aphasic Psychiatric exam: ABSENT: anxious Results Laboratory Results: 01/19/19 08:06 01/19/19 08:06 01/19/19 01/19/19 08:06 08:06 WBC 6.7 RBC 5.21 Hgb 16.3 Hct 47.4 MCV 91 MCH 31.3 MCHC 34.3 RDW 13.2 Plt Count 224 Seg Neutrophils % 57.4 Sodium 139.1 Potassium 4.0 Chloride 101 Carbon Dioxide 26 Anion Gap 12 BUN 14 Creatinine 0.92 Est GFR ( Amer) > 60 Glucose 146 H Calcium 10.0 Total Bilirubin 1.4 H AST 27 Alkaline Phosphatase 101 Total Protein 7.9 Albumin 4.7 01/19/19 01/19/19 01/19/19 08:06 08:06 11:29 Creatine Kinase 48 L CK-MB (CK-2) 1.12 Troponin I < 0.012 < 0.012 Impressions: Chest X-Ray 01/19/19 08:38 IMPRESSION: No evidence of acute cardiopulmonary process. Assessment and Plan - Diagnosis (1) Chest tightness Is this a current diagnosis for this admission?: Yes (2) Palpitations Is this a current diagnosis for this admission?: Yes (3) Anxiety Is this a current diagnosis for this admission?: Yes - Plan Summary Summary: -Patient's symptoms today were defined by palpitations accompanied by chest tightness and an overwhelming feeling of weakness -Patient is already scheduled to have a stress test done outpatient tomorrow -Patient's symptoms have completely resolved currently and troponins have been negative x2 -I have discussed with patient and his and they are okay with continuing with their already scheduled outpatient stress test that is planned for tomorrow by Dr. Davila as opposed to being admitted today for an inpatient stress test that would be done tomorrow. -I recommend discharging patient from ER to follow-up tomorrow for his outpatient stress test to evaluate his feelings of chest tightness given history of triple bypass. I have informed Dr. Cardenas that I will not be admitting and he is okay with it. -Patient's anxiety needs to be addressed -Patient should follow-up with his account officer to get an event monitor for his intermittent episodes of palpitations to r/o arrhythmias. - Time Time Spent with patient: 35 or more minutes
[2019-01-19 15:27] VITALS: BP 110/64
== END 2019-01-19 15:27 | disposition home or self-care (01) ==
LOC: ER 08:35 → UNDOADMIN 10:03 → EH 10:03 → ER 15:27
DX: R07.9 Chest pain, unspecified (principal); F41.9 Anxiety disorder, unspecified; R20.0 Anesthesia of skin; I25.10 Atherosclerotic heart disease of native coronary artery without angina pectoris; J45.909 Unspecified asthma, uncomplicated
CPT/HCPCS: 93005; 36415; 82553; 82550; 85025; 80053; 84484; 71045; 93010; J2060; 96374; 99285

== ENCOUNTER 2020-02-21 08:04 | Day surgery (SDC) | payer MEDICARE ==
[2020-02-21 10:25] VITALS: BP 138/67
--- NOTE | 2020-02-21 11:34 | Operative Report ---
Operative Report DATE OF SURGERY: 02/21/20 Operative Report: The risk, benefits and alternatives of the procedure including the risk of bleeding, perforation requiring surgery have been explained to the patient in detail and informed consent has been obtained. The patient is taken back to the operating room placed in left, lateral decubital position. Timeout was called. Propofol medication is administered. Rectal examination is done which did not reveal any masses, tears or fissures. An Olympus videoscope was introduced into the patient's rectum. Scope was then carefully advanced all the way to the cecum. Cecum was identified by the usual anatomical landmarks including the ileocecal valve as well as the appendiceal office. Photodocumentation is obtained. Scope was then sequentially pulled back via the various segments of the colon including the ascending colon, back flexure, transverse colon, splenic flexure, descending colon and finally into the rectosigmoid portions of the colon. Retroflexion maneuver is performed. PREOPERATIVE DIAGNOSIS: Personal history of polyp POSTOPERATIVE DIAGNOSIS: Polyp noted in the cecum status post removal with snare polypectomy and retrieved. Internal hemorrhoids. Diverticulosis OPERATION: Colonoscopy with snare polypectomy SURGEON: ABBI STAHL ANESTHESIA: LMAC TISSUE REMOVED OR ALTERED: As noted above. COMPLICATIONS: None. ESTIMATED BLOOD LOSS: None. INTRAOPERATIVE FINDINGS: As noted above. PROCEDURE: Patient tolerated the procedure well. No immediate postprocedure complications are noted. Patient is discharged in good condition. Discharge date 02/21/2020. Discharge diet: Regular. Discharge activity: Regular. 2 to 3-week follow-up to discuss findings. Patient is instructed to call the office or proceed to the emergency room should there be any further problems or questions. Wait on the pathology. 5-year surveillance colonoscopy.
== END 2020-02-21 10:34 | disposition home or self-care (01) ==
LOC: OROUT 08:04
PROVIDERS: ATTEND Internal Medicine Gastroenterology
DX: Z12.11 Encounter for screening for malignant neoplasm of colon (principal); D12.0 Benign neoplasm of cecum; K57.90 Diverticulosis of intestine, part unspecified, without perforation or abscess without bleeding; K64.8 Other hemorrhoids; K22.2 Esophageal obstruction; J45.20 Mild intermittent asthma, uncomplicated; I25.10 Atherosclerotic heart disease of native coronary artery without angina pectoris; E78.5 Hyperlipidemia, unspecified; I10 Essential (primary) hypertension; Z79.899 Other long term (current) drug therapy; Z79.82 Long term (current) use of aspirin; Z95.1 Presence of aortocoronary bypass graft; Z01.812 Encounter for preprocedural laboratory examination; Z20.822 Contact with and (suspected) exposure to COVID-19; Z95.5 Presence of coronary angioplasty implant and graft; Z87.442 Personal history of urinary calculi; Z87.891 Personal history of nicotine dependence; Z87.19 Personal history of other diseases of the digestive system
CPT/HCPCS: 45385; 88305 ×2; 00812; U0003; J2704; C9803; 812; 87635